=== PATIENT | male | born 1950 | race Caucasian/White ===

== ENCOUNTER 2016-09-26 09:26 | Outpatient (CLI) | payer OTHER ==
--- NOTE | 2016-09-26 12:42 | Ultrasound Report ---
AORTA SCREEN: 09/26/2016 CLINICAL INDICATION: Hypertension. TECHNIQUE: Real-time sonographic vascular imaging was performed by the direct selling counselor through the aorta utilizing both color-flow and Doppler spectral analysis. Multiple small business representative static images were s aved for review. FINDINGS: The abdominal aorta is normal in caliber, measuring 2.7 cm proximally, 2.6 cm in the mid p ortion, and 2.2 cm distally. The iliacs are normal in caliber. No free fluid is present. IMPRESSION: NO EVIDENCE OF ABDOMINAL AORTIC ANEURYSM. JOB #: [id number] EXT JOB #:[id number]
== END 2016-09-26 09:27 | disposition home or self-care (01) ==
LOC: DI 09:26
PROVIDERS: ATTEND Internal Medicine
DX: Z13.6 Encounter for screening for cardiovascular disorders (principal); I10 Essential (primary) hypertension
CPT/HCPCS: 76706

== ENCOUNTER 2017-07-19 17:19 | Observation (INO) | payer OTHER ==
--- NOTE | 2017-07-19 17:38 | ED Physician Documentation ---
PD HPI ABD PAIN - Stated complaint Stated Complaint: ABD PX - Chief complaint Chief Complaint: Abd Pain - History obtained from History obtained from: Patient - History of Present Illness Timing - onset: Last night (Cramping upper abd pain since last night, 10/27. Not better p peptobismol. No N/V/D, hard BM this AM. Previous similar sx due to constipation, but that was lower. No hematochezia. Normal Cscope a few years ago. No abd surgeries.) Review of Systems Ten Systems: 10 systems reviewed and negative Constitutional: denies: Fever, Chills Cardiac: reports: Reviewed and negative Respiratory: reports: Reviewed and negative GI: reports: Abdominal Pain. denies: Nausea, Vomiting, Diarrhea, Hematemesis, Bloody / black stool PD PAST MEDICAL HISTORY - Past Medical History Cardiovascular: Hypertension, High cholesterol Endocrine/Autoimmune: Type 2 diabetes GI: GERD Derm: Other - Past Surgical History Past Surgical History: Yes Ortho: Arthroscopic surgery - Present Medications Home Medications: Ambulatory Orders Medication Instructions Recorded Confirmed Lisinopril 20 mg PO DAILY 01/15/15 08/09/15 Omeprazole [Prilosec] 20 mg PO DAILY 01/15/15 08/09/15 Pravastatin Sodium 40 mg PO DAILY 01/15/15 08/09/15 - Allergies Allergies/Adverse Reactions: Allergies Allergy/AdvReac Type Severity Reaction Status Date / Time No Known Drug Allergies Allergy Verified 07/19/17 17:25 - Social History Does the pt smoke?: No Smoking Status: Never smoker Does the pt drink ETOH?: Yes Does the pt have substance abuse?: No - Family History Family history: reports: Non contributory - Immunizations Immunizations are current?: Yes PD ED PE NORMAL - Vitals Vital signs reviewed: Yes - General General: Alert and oriented X 3, No acute distress - HEENT HEENT: PERRL, EOMI - Neck Neck: Supple, no meningeal sign, No bony TTP - Cardiac Cardiac: RRR, No murmur - Respiratory Respiratory: No respiratory distress, Clear bilaterally - Abdomen Abdomen: Soft, Non tender, Other (sl hyperactive bowel tones) - Back Back: No CVA TTP, No spinal TTP - Derm Derm: Normal color, Warm and dry - Extremities Extremities: No edema, No calf tenderness / cord - Neuro Neuro: Alert and oriented X 3, Normal speech - Psych Psych: Normal mood, Normal affect Results - Vitals Vitals: Vital Signs - 24 hr 07/19/17 17:23 Temperature 36.5 C Heart Rate 82 Respiratory 16 Rate Blood Pressure 170/94 H O2 Saturation 99 Oxygen O2 Source Room air - EKG (time done) 1801 Rate: Rate (enter#) (74) Rhythm: NSR [place]: Normal Intervals: Normal [place] QRS: Normal Ischemia: Non specific changes. No: ST elevation c/w ischemia Computer interpretation: Agree with computer - Labs Labs: Laboratory Tests 07/19/17 07/19/17 07/19/17 17:55 17:55 17:55 WBC 12.8 H RBC 4.89 Hgb 15.3 Hct 44.5 MCV 91.1 MCH 31.4 H MCHC 34.5 RDW 12.3 Plt Count 190 MPV 7.0 L Neut # 10.9 H Lymph # 0.8 L [place] # 1.0 Eos # 0.0 Baso # 0.0 Absolute Nucleated RBC 0.01 Nucleated RBC % 0.1 Sodium 134 L Potassium 3.6 Chloride 97 L Carbon Dioxide 27 Anion Gap 10.0 BUN 14 Creatinine 0.9 Estimated GFR (MDRD) 84 L Glucose 164 H Calcium 9.6 Total Bilirubin 0.9 AST 26 ALT 31 Alkaline Phosphatase 52 Troponin I < 0.04 Total Protein 7.2 Albumin 4.4 Globulin 2.8 Albumin/Globulin Ratio 1.6 Lipase 11 L - Rads (name of study) Ct A/P Radiology: EMP read contemporaneously (Cholelithiasis with gallbladder wall thickening and pericholecystic edema concerning for acute cholecystitis. There is also hepatic steatosis.) PD MEDICAL DECISION MAKING - ED course ED course: 67-year-old gentleman with acute epigastric pain. He is not tender but does have mild leukocytosis and a CT demonstrating cholecystitis. Spoke with the surgeon, Dr. Mota at 7:45 PM and she will place him in observation for likely cholecystectomy after IV antibiotics tomorrow. Departure - Departure Disposition: ED Place in Observation Clinical Impression: Cholecystitis Condition: Stable
[2017-07-19] MEDS ORDERED: LIDOCAINE VISCOUS 2% 15 ML UDC MM STA (17:46)
[2017-07-19] MEDS ORDERED: MAG HYDROX/AL HYDROX/SIMETH 30 ML UDC PO STA (17:46)
[2017-07-19 17:59] LABS: BASOPHILS % (AUTO) 0.3 %; HGB - HEMOGLOBIN 15.3 g/dL (14.0-18.0); LYMPHOCYTES # (AUTO) 0.8 10^3/uL (1.5-3.5); LYMPHOCYTES % (AUTO) 6.5 %; MEAN CORPUSCULAR HEMOGLOBIN 31.4 pg (27.0-31.0); MEAN CORPUSCULAR HGB CONC 34.5 g/dL (32.0-36.0); MEAN CORPUSCULAR VOLUME 91.1 fL (80.0-94.0); MONOCYTES % (AUTO) 7.8 %; NEUTROPHILS # (AUTO) 10.9 10^3/uL (1.5-6.6); NEUTROPHILS % (AUTO) 85.4 %; PLT - PLATELET COUNT 190 10^3/uL (130-450); RED BLOOD COUNT 4.89 10^6/uL (4.70-6.10); RED CELL DISTRIBUTION WIDTH 12.3 % (12.0-15.0); WHITE BLOOD COUNT 12.8 x10^3/uL (4.8-10.8)
[2017-07-19] MEDS ORDERED: ONDANSETRON 4 MG/2 ML VIAL IVP ONE (18:00)
[2017-07-19] MEDS ORDERED: MIDAZOLAM 2 MG/2 ML VIAL IVP ONE (18:00)
[2017-07-19] MEDS ORDERED: DEXAMETHASONE 4 MG/ML VIAL IVP ONE (18:00)
[2017-07-19] MEDS ORDERED: ceFAZolin 1 GM VIAL IV ONE (18:00)
[2017-07-19] MEDS ORDERED: GLYCOPYRROLATE 1 MG/5 ML VIAL IVP ONE (18:00)
[2017-07-19] MEDS ORDERED: PROPOFOL 200 MG/20 ML VIAL IVP ONE (18:00)
[2017-07-19] MEDS ORDERED: NEOSTIGMINE 1 MG/1 ML 10 ML MDV IVP ONE (18:00)
[2017-07-19] MEDS ORDERED: fentaNYL 250 MCG/5 ML VIAL IVP ONE (18:00)
[2017-07-19] MEDS ORDERED: ROCURONIUM 50 MG/5 ML VIAL IVP ONE (18:00)
[2017-07-19] MEDS ORDERED: LIDOCAINE-MPF 2% 5 ML VIAL IM ONE (18:00)
[2017-07-19] MEDS ORDERED: SUCCINYLCHOLINE 200 MG/10 ML VIAL IVP ONE (18:00)
[2017-07-19 18:11] LABS: ALBUMIN 4.4 g/dL (3.2-5.5); ALBUMIN/GLOBULIN RATIO 1.6 (1.0-2.2); BILIRUBIN,TOTAL 0.9 mg/dL (0.2-1.0); CALCIUM 9.6 mg/dL (8.5-10.3); CREATININE 0.9 mg/dL (0.6-1.2); TOTAL PROTEIN 7.2 g/dL (6.7-8.2)
[2017-07-19] MEDS ORDERED: IOPAMIDOL-300 100 ML VIAL ONE (18:26)
[2017-07-19] MEDS ORDERED: MORPHINE 10 MG/ML VIAL IVP STA (19:14)
[2017-07-19] MEDS ORDERED: IOPAMIDOL-300 100 ML VIAL IVP ONE (19:19)
--- NOTE | 2017-07-19 19:39 | CT Report ---
EXAM: CT ABDOMEN AND PELVIS EXAM DATE: 07/19/2017 07:12 PM. CLINICAL HISTORY: Abdominal pain COMPARISONS: None. TECHNIQUE: Routine helical CT imaging was performed through the abdomen and pelvis. IV contrast: 100M L ISOVUE 300. Enteric contrast: No. Reconstructions: Coronal and sagittal. In accordance with CT protocol optimization, one or more of the following dose reduction techniques w ere utilized for this exam: automated exposure control, adjustment of mA and/or KV based on patient s ize, or use of iterative reconstructive technique. FINDINGS: Lung Bases: Unremarkable. Liver: There is mild hepatic steatosis. Gallbladder/Bile Ducts: There is cholelithiasis. The gallbladder is distended. There is mild perichol ecystic fat stranding. No evidence of significant bile duct dilatation. Spleen: Normal. Pancreas: Normal. Adrenal Glands: Normal. Kidneys: Normal. No masses or hydronephrosis. Peritoneal Cavity/Bowel: No free fluid, free air or adenopathy. No masses or acute inflammatory proce ss. The appendix is well visualized and normal. Pelvic Organs: Normal. The bladder and visualized pelvic organs are within normal limits. Vasculature: No aneurysms or other significant abnormality. Bones: No significant abnormality. Other: None. IMPRESSION: 1. There is cholelithiasis. There is mild gallbladder wall thickening and pericholecystic edema. Find ings are suspicious for acute cholecystitis. 2. There is mild hepatic steatosis. 3. No acute gastrointestinal tract abnormalities are seen. [facility] Referring Provider Line: [phone] SITE ID: [id number]
[2017-07-19] MEDS ORDERED: SODIUM CHLORIDE FLUSH 0.9% 10 ML SYRINGE IVP PRN (19:50)
[2017-07-19] MEDS ORDERED: ONDANSETRON ODT 4 MG TABLET TL PRN (19:50)
[2017-07-19] MEDS: LACTATED RINGERS 1,000 ML IV SCH (21:03)
[2017-07-19] MEDS: AMPICILLIN/SULBACTAM 3 GM in SODIUM CHLORIDE 0.9% MINIBAG 100 ML IV SCH (21:03)
[2017-07-19] MEDS: SODIUM CHLORIDE FLUSH 0.9% 10 ML SYRINGE IVP SCH (21:03)
[2017-07-19] MEDS: HYDROcod/ACETAM 5/325 MG TABLET PO PRN (21:28)
[2017-07-20] MEDS: AMPICILLIN/SULBACTAM 3 GM in SODIUM CHLORIDE 0.9% MINIBAG 100 ML IV SCH ×4 (01:00→20:41)
[2017-07-20] MEDS: HYDROcod/ACETAM 5/325 MG TABLET PO PRN ×3 (01:23→22:37)
[2017-07-20] MEDS: MORPHINE 2 MG/ML SYRINGE IVP PRN (04:48)
[2017-07-20 05:25] LABS: BASOPHILS % (AUTO) 0.2 %; EOSINOPHILS % (AUTO) 0.1 %; HGB - HEMOGLOBIN 14.9 g/dL (14.0-18.0); LYMPHOCYTES % (AUTO) 8.3 %; MEAN CORPUSCULAR HEMOGLOBIN 30.7 pg (27.0-31.0); MEAN CORPUSCULAR HGB CONC 33.3 g/dL (32.0-36.0); MEAN CORPUSCULAR VOLUME 92.2 fL (80.0-94.0); MONOCYTES # (AUTO) 1.5 10^3/uL (0.0-1.0); MONOCYTES % (AUTO) 12.5 %; NEUTROPHILS # (AUTO) 9.8 10^3/uL (1.5-6.6); NEUTROPHILS % (AUTO) 78.9 %; PLT - PLATELET COUNT 170 10^3/uL (130-450); RED BLOOD COUNT 4.87 10^6/uL (4.70-6.10); RED CELL DISTRIBUTION WIDTH 12.1 % (12.0-15.0); WHITE BLOOD COUNT 12.4 x10^3/uL (4.8-10.8)
[2017-07-20 05:43] LABS: ALBUMIN 3.8 g/dL (3.2-5.5); ALBUMIN/GLOBULIN RATIO 1.5 (1.0-2.2); BILIRUBIN,TOTAL 1.6 mg/dL (0.2-1.0); CALCIUM 8.5 mg/dL (8.5-10.3); CREATININE 0.8 mg/dL (0.6-1.2); TOTAL PROTEIN 6.4 g/dL (6.7-8.2)
[2017-07-20] MEDS: PANTOPRAZOLE 40 MG TABLET PO SCH (06:35)
[2017-07-20] MEDS: LACTATED RINGERS 1,000 ML IV SCH ×3 (07:46→22:37)
[2017-07-20] MEDS ORDERED: BUPIVACAINE 0.5%-EPI 1:200000 PF 10 ML VIAL ONE ×3 (07:57→15:07)
[2017-07-20] MEDS: SODIUM CHLORIDE FLUSH 0.9% 10 ML SYRINGE IVP SCH ×2 (08:40→20:39)
[2017-07-20] MEDS: POLYETHYLENE GLYCOL 3350 17 GM PACKET PO SCH (08:40)
[2017-07-20] MEDS: LISINOPRIL 20 MG TABLET PO SCH (08:46)
[2017-07-20] MEDS ORDERED: NON FORMULARY MED (Omeprazole [Prilosec] 20 MG) PO SCH (09:00)
--- NOTE | 2017-07-20 14:51 | HISTORY & PHYSICAL EXAMINATION ---
Chief Complaint - Chief Complaint Chief Complaint: abdominal pain Abdominal Pain HPI - History of Present Illness HPI Comment/Other: This is a 67-year-old gentleman who presented to the emergency department yesterday evening with complaints of epigastric abdominal pain. He states that Thursday late in the night he woke up with abdominal pain. This pain progressed throughout most of the day on Thursday and he eventually came to the emergency department. It was initially located in the epigastric area and now is more localized to the right upper quadrant. He denies any prior similar episodes. Upon evaluation in the emergency department white blood cell count and LFTs were performed. He was noted to have a slight leukocytosis of [address] scan of the abdomen was performed which demonstrated cholelithiasis with signs of cholecystitis. Of note his biliary tree did not demonstrate any ductal dilatation. He was subsequently admitted to the surgical service.The patient is currently resting in bed comfortably and states that his pain is markedly improved but he does continue to have a dull pain located in the right upper quadrant. He denies any associated nausea or vomiting.This morning his total bilirubin has increased slightly to 1.6. PMH/PSH - Past Medical History Cardiovascular: positive: Hypertension, High cholesterol Respiratory: positive: None Neuro: positive: None Endocrine/Autoimmune: positive: Type 2 diabetes GI: positive: None : positive: None HEENT: positive: None Psych: positive: None Musculoskeletal: positive: None Derm: positive: Rosacea MRSA Hx?: No - Past Surgical History General: positive: Other Ortho: positive: Arthroscopic surgery Social & Family Hx - Living Situation Living Arrangement: At home - Social History Does the pt smoke?: No Smoking Status: Never smoker Does the pt drink ETOH?: Yes Does the pt have substance abuse?: No Additional Social History: The patient states that he drinks 2-3 glasses of wine daily. Meds/Allgy - Home Medications Home Medications: Ambulatory Orders Medication Instructions Recorded Confirmed Lisinopril 20 mg PO DAILY 01/15/15 07/19/17 Pravastatin Sodium 40 mg PO DAILY 01/15/15 07/19/17 Cholecalciferol (Vitamin D3) 1,000 unit PO DAILY 07/19/17 07/19/17 [Vitamin D3] metFORMIN [Glucophage] 250 mg PO DAILY 07/19/17 07/20/17 - Allergies Allergies/Adverse Reactions: Allergies Allergy/AdvReac Type Severity Reaction Status Date / Time No Known Drug Allergies Allergy Verified 07/19/17 17:25 Exam - Vital Signs Reviewed Vital Signs: Yes Vital Signs: Vital Signs x48h Temp Pulse Resp BP Pulse Ox 07/20/17 11:27 36.9 C 77 16 137/67 H 94 07/20/17 07:48 36.7 C 75 16 126/71 94 - Physical Exam General Appearance: positive: No acute distress Respiratory: positive: No respiratory distress, Breath sounds nml Cardiovascular: positive: Regular rate & rhythm Abdomen: positive: No distention, Other (Tender to palpation in the right upper quadrant with positive guarding but no rebound tenderness) Extremities: positive: No pedal edema Neurologic/Psychiatric: positive: Oriented x3 Results - Lab Results Fish Bones: 07/20/17 04:40 07/20/17 04:40 Other Lab Results: Lab Results x24hrs 07/20/17 07/20/17 Range/Units 04:40 04:40 WBC 12.4 H (4.8-10.8) x10^3/uL RBC 4.87 (4.70-6.10) 10^6/uL Hgb 14.9 (14.0-18.0) g/dL Hct 44.8 (42.0-52.0) % MCV 92.2 (80.0-94.0) fL MCH 30.7 (27.0-31.0) pg MCHC 33.3 (32.0-36.0) g/dL RDW 12.1 (12.0-15.0) % Plt Count 170 (130-450) 10^3/uL MPV 7.0 L (7.4-11.4) fL Neut # 9.8 H (1.5-6.6) 10^3/uL Lymph # 1.0 L (1.5-3.5) 10^3/uL [place] # 1.5 H (0.0-1.0) 10^3/uL Eos # 0.0 (0.0-0.7) 10^3/uL Baso # 0.0 (0.0-0.1) 10^3/uL Absolute Nucleated RBC 0.00 x10^3/uL Nucleated RBC % 0.0 /100WBC Sodium 135 (135-145) mmol/L Potassium 3.5 (3.5-5.0) mmol/L Chloride 103 (101-111) mmol/L Carbon Dioxide 27 (21-32) mmol/L Anion Gap 5.0 L (6-13) BUN 12 (6-20) mg/dL Creatinine 0.8 (0.6-1.2) mg/dL Estimated GFR (MDRD) 97 (>89) Glucose 161 H (70-100) mg/dL Calcium 8.5 (8.5-10.3) mg/dL Total Bilirubin 1.6 H (0.2-1.0) mg/dL AST 22 (10-42) IU/L ALT 26 (10-60) IU/L Alkaline Phosphatase 50 (42-121) IU/L Total Protein 6.4 L (6.7-8.2) g/dL Albumin 3.8 (3.2-5.5) g/dL Globulin 2.6 (2.1-4.2) g/dL Albumin/Globulin Ratio 1.5 (1.0-2.2) Impression/Plan - Problem List Problem List: Acute cholecystitis The patient will be taken to the operating room for laparoscopic cholecystectomy , possible intraoperative cholangiogram. The procedure was explained to the patient in detail including potential risks involved including but not limited to bleeding, infection and damage to intra-abdominal structures specifically including the common bile duct. He and his understand all of the above and agree with to proceed with the procedure. In the interim he will remain n.p.o. on IV antibiotics.
--- NOTE | 2017-07-20 17:36 | OPERATIVE REPORT ---
Operative Report - General Admit Date: 07/19/17 Pre-Op Diagnosis: Acute Cholecystitis Procedure Performed: Laparoscopic cholecystectomy, TAP block, Umbilical hernia repair - Procedure Note Primary Surgeon: Svetlana Anesthesia Technique: General ET tube - Other Other Information/Narrative: Findings: After obtaining informed consent the patient was brought into the operating room and positioned on the operating table in the supine position taking noted pressure points. The patient was intubated by anesthesia. Perioperative antibiotics were administered. The patient was then prepped and draped in the usual sterile fashion and a timeout was taken according to protocol. An infraumbilical 1 cm incision was created and deepened down to the umbilical stalk. The stalk was grasped and elevated and the veres needle inserted. The abdominal cavity was insufflated. A 5 mm incision was created in the patient's epigastric region to the right of the midline. Using a 5 mm Optiview trocar the abdominal cavity was entered. The Veress needle was removed and exchanged for a 12 mm port. 2 additional 5 mm ports were then placed along the patient's right lateral abdominal wall. The gallbladder was noted to be inflamed and distended. I inserted a drainage needle and 80 cc of clear fluid was drained. The gallbladder was then able to be grasped and retracted over the dome of the liver. The gallbladder was noted to be adherent to the underlying omentum and duodenum. These structures were carefully dissected off the gallbladder with blunt dissection. The fundus of the gallbladder very inflammed and I was unable to grasp it. I used my grasper to gently retract the base of the gallbladder medially exposing the lateral attachments and these were carefully taken down working my way laterally to medially. An enlarged lymph node was encountered and this was swept inferiorly. I continued opening the inflamed peritoneum medially to the medial attachments. Using the suction device the fatty inflamed tissue was swept down slowly, exposing the cystic duct. The cystic duct was circumferentially dissected free from surrounding fatty tissue. The cystic artery was similarly dissected out. The base of the gallbladder was dissected off of the liver bed and the critical view was obtained. The cystic duct was clipped with 2 clips placed proximally 1 distally and divided. The cystic artery was divided in a similar manner. The gallbladder was then removed from the gallbladder fossa with electrocautery. There was no spillage of stones during the process of gallbladder removal, but a small amount of bile was spilled. There was also some bleeding from the gallbladder fossa and this was controlled with electrocautery. The gallbladder was then placed in a specimen bag. The fascial incision was extended to approximately 2.5 cm to accommodate the very enlarged gallbladder. The gallbladder fossa was again inspected and copiously irrigated. Hemostasis was achieved and all bilious and bloody fluid evacuated. 40 cc of marcaine was then injected at the costal margin intraperitoneally performing a TAP block. An umbilical hernia was noted upon closure of the umbilical incision. This was dissected off the umbilical skin and reduced. The umbilical incision was then closed using a running 0-vicryl suture. The 5 mm camera was reinserted and the abdominal cavity re-insuflated and the umbilical incision inspected. It was noted to be completely closed and no underlying structures were involved in the closure . The abdominal cavity was then allowed to desufflate and all trochars were removed. An additional 20 cc of local was injected into the skin incisions. The umbilical skin was tacked to the abdominal fascia. The umbilical incision was closed with interrupted 3-0 nylon. The skin incisions were closed with 4-0 Monocryl. telfa and tegaderm was applied. The patient was subsequently extubated and taken to the recovery room in stable condition. Estimated blood loss: 50 Complications: None Specimen: Gallbladder
[2017-07-20] MEDS ORDERED: LACTATED RINGERS 300 ML IV ONE (18:23)
[2017-07-20] MEDS ORDERED: LACTATED RINGERS 1,000 ML IV ONE ×2 (18:24→20:17)
[2017-07-20] MEDS ORDERED: ACETAMINOPHEN 1,000 MG/100 ML 100 ML IV ONE (18:43)
[2017-07-20] MEDS: metFORMIN 500 MG TABLET PO SCH (20:44)
[2017-07-20] MEDS: INSULIN ASPART 300 UNIT/3 ML PEN SUBQ SCH (20:53)
[2017-07-21] MEDS: SODIUM CHLORIDE FLUSH 0.9% 10 ML SYRINGE IVP SCH ×2 (01:52→08:22)
[2017-07-21] MEDS: AMPICILLIN/SULBACTAM 3 GM in SODIUM CHLORIDE 0.9% MINIBAG 100 ML IV SCH ×2 (02:36→08:14)
[2017-07-21] MEDS: HYDROcod/ACETAM 5/325 MG TABLET PO PRN ×2 (02:47→06:58)
[2017-07-21] MEDS: metFORMIN 500 MG TABLET PO SCH (04:58)
[2017-07-21 05:36] VITALS: BP 108/64
[2017-07-21] MEDS: MORPHINE 2 MG/ML SYRINGE IVP PRN (05:43)
[2017-07-21 05:50] LABS: ALBUMIN 3.3 g/dL (3.2-5.5); ALBUMIN/GLOBULIN RATIO 1.1 (1.0-2.2); BILIRUBIN,TOTAL 1.2 mg/dL (0.2-1.0); CALCIUM 8.2 mg/dL (8.5-10.3); CREATININE 0.9 mg/dL (0.6-1.2); TOTAL PROTEIN 6.3 g/dL (6.7-8.2)
[2017-07-21] MEDS: PANTOPRAZOLE 40 MG TABLET PO SCH (06:56)
[2017-07-21] MEDS: LACTATED RINGERS 1,000 ML IV SCH (06:57)
[2017-07-21] MEDS: INSULIN ASPART 300 UNIT/3 ML PEN SUBQ SCH (08:08)
[2017-07-21] MEDS: LISINOPRIL 20 MG TABLET PO SCH (08:09)
[2017-07-21] MEDS: POLYETHYLENE GLYCOL 3350 17 GM PACKET PO SCH (08:09)
--- NOTE | 2017-07-21 09:15 | Discharge Plan ---
Discharge Plan Disposition: 01 Home, Self Care Condition: Stable Diet: Diabetic Activity Restrictions: nothing strenuous Shower Restrictions: Yes (no tub bathing 1 week) Driving Restrictions: Yes (not while on narcotics) Weight Bearing: Full Weight Additional Instructions or Follow Up instructions: handout provided No Smoking: If you smoke, Please STOP! Call for help. Follow-up with: Ruben Marks MD [Primary Care Provider] - MARIEL CHI MD [Provider Admit Priv/Credential] - 1 Week (for suture removal)
--- NOTE | 2017-07-21 10:02 | DISCHARGE SUMMARY ---
Discharge Summary Admit Date: 07/19/17 Discharge Date: 07/21/17 Discharging Provider: Svetlana Condition at Discharge: Stable Discharge Disposition: 01 Home, Self Care - DIAGNOSES Admission Diagnoses: Abdominal Pain Discharge Diagnoses with Status of Each Condition: Acute cholecystitis - HOSPITAL COURSE Hospital Course: This is a 67-year-old gentleman who was admitted to the hospital with abdominal pain. He underwent lab work and CT scan of the abdomen. His lab work and demonstrated a mild leukocytosis and his CT scan demonstrated inflammation of the gallbladder. He was admitted to the surgical service and kept n.p.o. on IV antibiotics. The following day he underwent a laparoscopic cholecystectomy. His gallbladder was noted to be quite inflamed and edematous. He was kept overnight for observation. The following morning he was tolerating diet and ambulating without assistance. He remained afebrile after surgery. He was stable for discharge home on hospital day #1.The patient was provided a prescription for Percocet for pain control upon discharge. He is also divided with instructions for after surgery care. He was instructed to follow-up in the surgical clinic in 1 week for suture removal and wound check. - ALLERGIES Allergies/Adverse Reactions: Allergies Allergy/AdvReac Type Severity Reaction Status Date / Time No Known Drug Allergies Allergy Verified 07/19/17 17:25 - MEDICATIONS Home Medications: Ambulatory Orders Medication Instructions Recorded Confirmed Lisinopril 20 mg PO DAILY 01/15/15 07/19/17 Pravastatin Sodium 40 mg PO DAILY 01/15/15 07/19/17 Cholecalciferol (Vitamin D3) 1,000 unit PO DAILY 07/19/17 07/19/17 [Vitamin D3] metFORMIN [Glucophage] 250 mg PO DAILY 07/19/17 07/20/17 - PHYSICAL EXAM AT DISCHARGE General Appearance: positive: No acute distress Respiratory: positive: No respiratory distress Cardiovascular: positive: Regular rate & rhythm Abdomen: positive: Non-tender, Other (dressings clean and dry) Extremities: positive: No pedal edema Neurologic/Psychiatric: positive: Oriented x3 - LABS Result Diagrams: 07/20/17 04:40 07/21/17 05:20 - TIME SPENT Time Spent in Discharge (Minutes): 20
[2017-07-21] MEDS ORDERED: metFORMIN 500 MG TABLET PO SCH (17:00)
== END 2017-07-21 10:00 | disposition home or self-care (01) ==
LOC: ED 17:19 → OBS 19:50
PROVIDERS: ADMIT Surgery; ATTEND Surgery
PROC: 0FT44ZZ Resection of Gallbladder, Percutaneous Endoscopic Approach (ICD-10-PCS; principal; 2017-07-20 14:30)
DX: K80.00 Calculus of gallbladder with acute cholecystitis without obstruction (principal); I10 Essential (primary) hypertension; E78.00 Pure hypercholesterolemia, unspecified; E11.9 Type 2 diabetes mellitus without complications; K21.9 Gastro-esophageal reflux disease without esophagitis; Z79.899 Other long term (current) drug therapy
CPT/HCPCS: 36415; 47562; 74177; 80053; 83690; 84484; 85025; 93005; 96361; 96365; 96366; 96375; 96376; 99283; 99285; A9270; G0378; J0131; J0330; J2270; J3010; J7120; Q9967; 88304; 99284

== ENCOUNTER 2018-01-12 15:38 | Outpatient (CLI) | payer OTHER ==
--- NOTE | 2018-01-13 08:59 | XRAY Report ---
Reason: PAIN IN UNSPECIFIED JOINT Procedure Date: 01/12/2018 Accession Number: [id number] / [id number] Procedure: XR - Cervical Spine Complete CPT Code: FULL RESULT: EXAM: CERVICAL SPINE RADIOGRAPHY EXAM DATE: 01/12/2018 04:11 PM. CLINICAL HISTORY: Fall, pain. COMPARISONS: None. TECHNIQUE: 5 views, including obliques views. FINDINGS: Alignment: Normal. No spondylolisthesis or scoliosis. Bones: The cervical vertebral bodies and posterior elements are well-visualized from the skull base through C7-T1. No fractures or bone lesions. Disks: Minimal disk space narrowing at all levels except C2-C3, most marked at C6-C7, with mild marginal lipping. Facets: Mild degenerative changes. Neural Foramina: Narrowing on the right at C3-C4 and C4-C5. Narrowing on the left at C3-C4. Soft Tissues: Normal. No prevertebral soft tissue swelling. The visualized lung apices are clear. IMPRESSION: Mild degenerative changes. No acute disease. [facility]
--- NOTE | 2018-01-13 09:03 | XRAY Report ---
Reason: PAIN IN UNSPECIFIED JOINT Procedure Date: 01/12/2018 Accession Number: [id number] / [id number] Procedure: XR - Thoracic Spine 2 View CPT Code: FULL RESULT: EXAM: THORACIC SPINE RADIOGRAPHY EXAM DATE: 01/12/2018 04:11 PM. CLINICAL HISTORY: Fall, pain. COMPARISON: Chest dated 08/17/2014. TECHNIQUE: 2 views. FINDINGS: Alignment: Mild upper thoracic scoliosis. No listhesis. Bones: No fractures or bone lesions. Disks: Normal. Disk heights are maintained. Soft Tissues: Normal. The visualized lungs and cardiomediastinal silhouette are normal. IMPRESSION: Mild scoliosis, increased since previous study. Otherwise negative. [facility]
--- NOTE | 2018-01-13 09:24 | XRAY Report ---
Reason: PAIN IN UNSPECIFIED JOINT Procedure Date: 01/12/2018 Accession Number: [id number] / [id number] Procedure: XR - Lumbar Spine 2 View CPT Code: FULL RESULT: EXAM: LUMBOSACRAL SPINE RADIOGRAPHY EXAM DATE: 01/12/2018 04:11 PM. CLINICAL HISTORY: Fall onto a tree trunk. COMPARISONS: None. TECHNIQUE: 3 views. FINDINGS: Alignment: Mild levoconvex lumbar scoliosis which is possibly positional and no listhesis. Bones: Five lxv-pwg-baxkkiy lumbar vertebral bodies are present. No fractures or bone lesions. Disks: All disk heights are overall maintained there are mild degenerative disk disease changes including endplate sclerosis and mild spurring predominantly at L4-L5. Facets: Mild facet arthropathy is predominately at L5-S1 but also to an even lesser degree at L4-L5. Sacroiliac Joints: Unremarkable. Soft Tissues: Mild aortic calcifications are noted. The visualized bowel gas pattern is normal. IMPRESSION: No evidence of traumatic injury to the osseous lumbar spine. [facility]
== END 2018-01-12 15:39 | disposition home or self-care (01) ==
LOC: DI 15:38
PROVIDERS: ATTEND Internal Medicine
DX: M50.821 Other cervical disc disorders at C4-C5 level (principal); M47.9 Spondylosis, unspecified; M41.9 Scoliosis, unspecified; M51.36 Other intervertebral disc degeneration, lumbar region
CPT/HCPCS: 72050; 72070; 72100

== ENCOUNTER 2018-10-05 12:52 | Outpatient (CLI) | payer MEDICARE, OTHER ==
--- NOTE | 2018-10-05 13:42 | Ultrasound Report ---
Reason: ACUTE EMBOLISM AND THOMBOS UNSP DEEP VN UNSP LOWER Procedure Date: 10/05/2018 Accession Number: [id number] / [id number] Procedure: US - Duplex Ext Veins Right CPT Code: FULL RESULT: EXAM: RIGHT LOWER EXTREMITY VENOUS ULTRASOUND EXAM DATE: 10/05/2018 01:31 PM. CLINICAL HISTORY: Right leg swelling. COMPARISON: None. TECHNIQUE: Real-time sonographic vascular imaging was performed by the electronic components assembler through the lower extremity utilizing both color-flow and Doppler spectral analysis. Multiple reimbursement representative static images were saved for review. FINDINGS: Common Femoral Vein (CFV): Normal. CFV-GSV Junction: Normal. Profunda Femoral Vein (PFV): Normal. Femoral Vein (FV) Prox: Normal. Femoral Vein (FV) Mid: Normal. Femoral Vein (FV) Dist: Normal. Popliteal Vein: Normal. Posterior Tibial Veins: Normal. Peroneal Veins: Normal. Contralateral Side CFV: Normal. Other: None. IMPRESSION: No evidence for deep venous thrombosis. [facility]
== END 2018-10-05 12:53 | disposition home or self-care (01) ==
LOC: DI 12:52
PROVIDERS: ATTEND Internal Medicine
DX: R60.0 Localized edema (principal)

== ENCOUNTER 2019-05-10 08:21 | Outpatient (CLI) | payer MEDICARE, OTHER ==
[2019-05-10 12:08] LABS: CREATININE,URINE 130.8 mg/dL; MICROALBUM/CREATININE RATIO,UR 2.3 ug/mg (<30.0); MICROALBUMIN,URINE 0.3 mg/dL (0-300.0)
[2019-05-10 12:10] LABS: ALBUMIN 4.6 g/dL (3.2-5.5); ALBUMIN/GLOBULIN RATIO 1.6 (1.0-2.2); ALKALINE PHOSPHATASE 47 IU/L (42-121); ALT ALANINE AMINOTRANSFERASE 39 IU/L (10-60); AST ASPARTATE AMINOTRANSFERASE 30 IU/L (10-42); BILIRUBIN,TOTAL 1.1 mg/dL (0.2-1.0); BUN - BLOOD UREA NITROGEN 13 mg/dL (6-20); CALCIUM 9.1 mg/dL (8.5-10.3); CARBON DIOXIDE - CO2 27 mmol/L (21-32); CHLORIDE 101 mmol/L (101-111); CHOL/HDL RATIO 4.3 (<5.0); CHOLESTEROL 145 mg/dL; GFR - MDRD 75 (>89); GLUCOSE 110 mg/dL (70-100); HDL CHOLESTEROL 34 mg/dL; LDL CHOLESTEROL,CALCULATED 85 mg/dL; LDL/HDL RATIO 2.5 (<3.6); SODIUM 137 mmol/L (135-145); TOTAL PROTEIN 7.5 g/dL (6.7-8.2); VLDL CHOLESTEROL 26 mg/dL
[2019-05-10 12:23] LABS: HB2 TOTAL 16.6 g/dL; HEMOGLOBIN A1C 0.68 g/dL; HEMOGLOBIN A1C % 5.9 % (4.6-6.2)
== END 2019-05-10 23:59 | disposition home or self-care (01) ==
LOC: LAB.N 08:21
PROVIDERS: ATTEND Internal Medicine
DX: E11.9 Type 2 diabetes mellitus without complications (principal); E66.9 Obesity, unspecified; E78.5 Hyperlipidemia, unspecified; I10 Essential (primary) hypertension; Z79.899 Other long term (current) drug therapy
CPT/HCPCS: 36415; 80053; 80061; 82043; 82570; 83036; 83721; 84443

== ENCOUNTER 2020-03-23 08:01 | Outpatient (CLI) | payer MEDICARE, OTHER ==
--- NOTE | 2020-03-23 11:53 | XRAY Report ---
PROCEDURE: Shoulder 3 View RT INDICATIONS: RT SHOULDER PAIN TECHNIQUE: 3 views of the shoulder were acquired. COMPARISON: None. FINDINGS: Bones: No fractures or dislocations. There is moderate glenohumeral joint degeneration with joint sp paola narrowing, subchondral sclerosis, and osteophytosis. Mild acromioclavicular joint degeneration de monstrated as well as minimal inferior spurring along the lateral acromion. No suspicious bony lesion s. Visualized ribs appear intact. Soft tissues: No suspicious soft tissue calcifications. IMPRESSION: 1. Osteoarthritic changes including moderate degeneration of the glenohumeral joint. Reviewed by: Yves Watkins MD on 03/23/2020 11:52 AM [facility] Approved by: Yves Watkins MD on 03/23/2020 11:52 AM [facility] Station ID: [id number]
== END 2020-03-23 08:02 | disposition home or self-care (01) ==
LOC: DI 08:01
PROVIDERS: ATTEND Internal Medicine
DX: M19.011 Primary osteoarthritis, right shoulder (principal)

== ENCOUNTER 2020-08-09 07:40 | Outpatient (CLI) | payer MEDICARE, OTHER ==
--- NOTE | 2020-08-09 09:51 | Ultrasound Report ---
PROCEDURE: Abdomen Complete INDICATIONS: UMBILICAL HERNIA TECHNIQUE: Real-time scanning was performed of the abdominal and retroperitoneal organs, with image documentatio n. COMPARISON: None. FINDINGS: Liver: Echogenic liver appearance diffusely. No focal hepatic lesion. Liver measures 13.2 cm in ivania th Gallbladder: Surgically absent Biliary ducts: Intrahepatic bile ducts are non-dilated. Extrahepatic bile duct caliber measures 6-7 mm. The distal common bile duct not well seen. Normal is 6-7 mm or less in diameter, or 10 mm or le ss post-cholecystectomy. Pancreas: Visualized portions of the pancreas are sonographically normal. Spleen: Spleen is normal in size and homogeneous in echotexture. Kidneys: Kidneys are normal in size and echotexture. Right kidney measures 10.3 cm long; left kidne y measures 11.5 cm long. No hydronephrosis or nephrolithiasis. No solid masses. Left renal cysts m easuring 1.1 x 0.9 x 0.7 cm in the mid left kidney. 1.2 x 1.1 x 0.7 cm mid left renal cyst. Aorta: Visualized aorta is normal in caliber at less than 3 cm. Iliacs: Proximal common iliac arteries are normal in caliber at less than 2.5 cm. IVC: Intrahepatic inferior vena cava is patent. Miscellaneous: No free abdominal fluid. Periumbilical hernia approximately 3 cm superior to the umb ilicus in the area of pain measuring 0.8 x 0.7 cm. IMPRESSION: Subcentimeter supraumbilical hernia as above. Coarsely echogenic liver suggesting hepatic steatosis/diffuse hepatocellular disease. Please correlat e with LFTs. Left renal cysts Reviewed by: Dante Cobb MD on 08/09/2020 9:50 AM PDT Approved by: Dante Cobb MD on 08/09/2020 9:50 AM PDT Station ID: [id number]
== END 2020-08-09 07:41 | disposition home or self-care (01) ==
LOC: DI 07:40
PROVIDERS: ATTEND Internal Medicine
DX: K42.0 Umbilical hernia with obstruction, without gangrene (principal); N28.1 Cyst of kidney, acquired; R93.2 Abnormal findings on diagnostic imaging of liver and biliary tract

== ENCOUNTER 2021-06-24 07:23 | Day surgery (SDC) | payer MEDICARE, OTHER ==
[~2021-06-24 07:23] MED LIST: BUPIVACAINE 0.5% PF 10 ML VIAL ONE; CEFAZOLIN SODIUM IN 0.9 % NACL 2 GM/50 ML BAG IV ONE; LIDOCAINE 2%-EPI 1:100000 20 ML MDV ONE; ceFAZolin 1 GM VIAL ONE
[2021-06-24] MEDS ORDERED: LACTATED RINGERS 1,000 ML IV ONE ×2 (07:31→10:34)
[2021-06-24] MEDS ORDERED: MIDAZOLAM 2 MG/2 ML VIAL ONE (08:03)
[2021-06-24] MEDS ORDERED: LIDOCAINE-MPF 2% 5 ML VIAL ONE (08:03)
[2021-06-24] MEDS ORDERED: PROPOFOL 200 MG/20 ML VIAL IVP ONE (08:03)
[2021-06-24] MEDS ORDERED: fentaNYL 100 MCG/2 ML VIAL ONE (08:04)
[2021-06-24] MEDS ORDERED: ATROPINE ABBOJECT 1 MG/10 ML SYRINGE IVP PRN (08:24)
[2021-06-24] MEDS ORDERED: MORPHINE 2 MG/ML CARPUJECT IVP PRN (08:24)
[2021-06-24] MEDS ORDERED: NALOXONE 0.4 MG/ML VIAL IVP PRN (08:24)
[2021-06-24] MEDS ORDERED: ePHEDrine 50 MG/ML VIAL IVP PRN (08:24)
[2021-06-24] MEDS ORDERED: METOCLOPRAMIDE 10 MG/2 ML VIAL IVP PRN (08:24)
[2021-06-24] MEDS ORDERED: HYDROmorphone 0.5 MG/0.5 ML SYRINGE IVP PRN (08:24)
[2021-06-24] MEDS ORDERED: ONDANSETRON 4 MG/2 ML VIAL IVP PRN ×2 (08:24→10:28)
[2021-06-24] MEDS ORDERED: fentaNYL 100 MCG/2 ML VIAL IVP PRN (08:24)
--- NOTE | 2021-06-24 08:25 | ANESTHESIA ---
Pre-Anesthesia VS, & Labs - Diagnosis ventral hernia - Procedure ventral hernia repair Vital Signs: Temp Pulse Resp BP Pulse Ox 36.2 C L 98 18 159/90 H 98 06/24/21 07:31 06/24/21 07:31 06/24/21 07:31 06/24/21 07:31 06/24/21 07:31 Height: 5 ft 8 in Weight (kg): 105 kg Body Mass Index: 35.2 BMI Classification: Obese - NPO >8 hours - Lab Results Current Lab Results: Laboratory Tests 06/24/21 07:52: POC Whole Bld Glucose 150 H Lab results reviewed: Yes Home Medications and Allergies Home Medications: Ambulatory Orders Liraglutide [Victoza 2-Yury] 1.8 mg SQ DAILY 06/13/21 Lisinopril 20 mg PO DAILY 01/15/15 Pravastatin Sodium 40 mg PO DAILY 01/15/15 Liraglutide [Victoza 2-Yury] 1.8 mg SQ DAILY 06/13/21 Allergies/Adverse Reactions: Allergies Allergy/AdvReac Type Severity Reaction Status Date / Time No Known Drug Allergies Allergy Verified 06/24/21 07:46 Anes History & Medical History - Anesthetic History Anesthesia Complications: reports: No previous complications Family history of Anesthesia Complications: Denies Family history of Malignant Hyperthermia: Denies - Medical History Cardiovascular: reports: Hypertension, High cholesterol Pulmonary: reports: None Gastrointestinal: reports: None Urinary: reports: None Musculoskeletal: reports: None Endocrine/Autoimmune: reports: Type 2 diabetes Blood Disorders: reports: None Skin: reports: Rosacea Smoking Status: Never smoker Psychosocial: reports: No issues indicated History of Cancer?: No - Surgical History General: reports: Cholecystectomy, Other Eyes Ears Nose Throat (EENT): reports: Cataracts, Tonsil/Adenoidectomy Orthopedic: reports: Arthroscopic surgery Exam General: Alert, Oriented x3, Cooperative Dental: WNL Mouth Openin Fingerbreadth Neck Mobility: Normal Mallampati classification: II Thyromental Distance: 4-6 cm Respiratory: Lungs clear, Normal breath sounds, No respiratory distress Cardiovascular: Regular rate Mental/Cognitive Status: Alert/Oriented X3, Normal for patient Cognitive Status: Within normal limits Plan Anesthesia Type: General Consent for Procedure(s) Verified and Reviewed: Yes Code Status: Attempt Resuscitation ASA classification: 2-Mild systemic disease Is this case an emergency?: No
[2021-06-24] MEDS ORDERED: LACTATED RINGERS 1,000 ML IV SCH (09:00)
[2021-06-24] MEDS ORDERED: ONDANSETRON 4 MG/2 ML VIAL ONE (10:02)
[2021-06-24] MEDS ORDERED: HYDROmorphone 1 MG/ML CARPUJECT ONE (10:03)
[2021-06-24] MEDS ORDERED: LIDOCAINE MPF 2%-EPI 1:200000 20 ML VIAL SUBQ ONE (10:13)
[2021-06-24] MEDS ORDERED: BUPIVACAINE 0.5% PF 10 ML VIAL IM ONE (10:13)
--- NOTE | 2021-06-24 10:21 | OPERATIVE REPORT ---
Operative Report - General Procedure Date: 06/24/21 Planned Procedure: Ventral hernia repair Pre-Op Diagnosis: Supraumbilical ventral hernia Procedure Performed: Complex incisional hernia repair Post Op Diagnosis: Incisional hernia beginning at the umbilicus with multiple fascial defects - Procedure Note Primary Surgeon: Carmen Anesthesia Provider: JERRY Vivar Anesthesia Technique: General LMA, Regional block Pathology: None Estimated Blood Loss (mL): 10 Findings: 3 cm defect at the umbilicus at the site of the prior cholecystectomy incision. 2 cm defect 2 cm superior to the umbilicus Complications: None apparent - Other Other Information/Narrative: After obtaining informed consent, the patient is brought to the operating room and placed in the supine position on the operating table. Following successful induction of general endotracheal anesthesia, appropriate padding of all bony prominences, and placement of appropriate monitors, the abdomen was prepped and draped in the standard surgical fashion. A timeout was held per scope protocol. All elements of the surgical safety checklist were followed before, during, and after the procedure. Following infiltration with local anesthetic to create a field block, an incision was created directly over the palpable and visible defect. This was carried through the skin and subcutaneous tissue. The umbilical tissue. We first identified a 2 cm transverse defect approximately 2 to 3 cm superior to the umbilicus.The fascial edges of this defect were defined and in doing so we discovered a second defect at the umbilicus. This was approximately 2 cm inferior to this originally identified defect. The defect at the umbilicus was approximately 3 cm and also in transverse orientation.The fascial edges of the defect at the umbilicus, at the site of prior surgery, were carefully defined. The hernia sac itself was approximately 4 cm. The hernia sac was carefully dissected free from the overlying skin and underlying fascial tissue as well as the surrounding areolar tissue. The contents of the sac were eased back into the abdominal cavity without opening the peritoneum. The distance between the 2 defects was measured and found to be 3 cm in total. An 8 cm piece of Ventralex ST hernia mesh was placed into the defect. The mesh was dipped in Ancef solution and into the defect. It was straightened and flattened in the preperitoneal space. Placement was checked and adjusted. Once we were satisfied it was ideal, the tails were trimmed and sewn to the fascia anteriorly. Great care was taken to be sure that this mesh also covered the more superior defect and this was verified by direct visualization. The more superior defect was then closed directly with 0 PDS suture to provide a second layer protection. The wound was checked for hemostasis and irrigated with Ancef containing solution The umbilicus was reconstructed with interrupted Vicryl suture. The incision was closed in layers with Vicryl and Monocryl suture and Dermabond was applied to the skin. All sponge, needle, and instrument counts were correct at the conclusion of the case. The patient was allowed awaken from anesthesia without difficulty and taken to the postanesthesia care unit in good condition.
[2021-06-24] MEDS ORDERED: oxyCODONE 5 MG TABLET PO PRN (10:28)
[2021-06-24] MEDS ORDERED: IBUPROFEN 600 MG TABLET PO PRN (10:28)
[2021-06-24] MEDS ORDERED: ACETAMINOPHEN 325 MG TABLET PO PRN (10:28)
[2021-06-24 13:16] VITALS: BP 138/88
--- NOTE | 2021-06-24 13:31 | ANESTHESIA POST OP EVALUATION ---
Anesthesia Post Eval - Post Anesthesia Eval Vitals: Last Vital Signs Temp 36.8 C 06/24/21 13:00 Pulse 99 06/24/21 13:00 Resp 14 06/24/21 13:00 BP 138/88 H 06/24/21 13:00 Pulse Ox 100 06/24/21 13:00 CV Function Including HR & BP: Stable Pain Control: Satisfactory Nausea & Vomiting: Negative Mental Status: Baseline Respiratory Status: Airway Patent Hydration Status: Satisfactory Anesthesia Complications: None
== END 2021-06-24 07:24 | disposition home or self-care (01) ==
LOC: SDS 07:23
PROVIDERS: ATTEND Surgery
DX: K43.2 Incisional hernia without obstruction or gangrene (principal); E66.9 Obesity, unspecified; Z68.35 Body mass index [BMI] 35.0-35.9, adult; E11.9 Type 2 diabetes mellitus without complications; I10 Essential (primary) hypertension
CPT/HCPCS: 49560; 49568; C1781; J0690; J1170; J7120

== ENCOUNTER 2021-10-22 15:44 | Outpatient (CLI) | payer MEDICARE, OTHER ==
--- NOTE | 2021-10-22 16:36 | SLEEP CARE CONSULTATION ---
Information from patient questionnaire entered by Jake Mccoy MA. I have reviewed and concur with the information entered by Jake Mccoy MA. This document represents the service I personally performed and the decisions made by , Lisset Alicia ARNP. History of Present Illness Service Date and Time: 10/22/2021 1544 Reason for Visit: New patient (ONSET 09/2020, NO PRIORS,) Chief Complaint: reports: Excessive daytime sleepiness, Observed pauses in breat [place] Date of Onset: 1 YEAR Usual bedtime: 10 PM Time it takes to fall asleep: 5 MINUTES Snores at night: No (per his ) Observed to quit breathing while asleep: Yes Sleeps alone due to snoring: No Number of times waking at night: 1 Reasons for waking at night: reports: Bathroom. denies: Choking, Snoring, Gasping for air Toss, Turn, or Twitch while sleeping: Yes Recalls having dreams: Yes Usually gets out of bed at: [id number] Feels refreshed in the morning: Yes Morning headache: No Sleepy or fatigued during the day: No Ever fallen asleep while driving: No Takes day naps: Yes (usually 5 mins a few times a month) Dreams during day naps: No Prior sleep studies: No Additional HPI information: I had the pleasure of seeing MARY POZO today regarding the possibility of him having a sleep disorder. His current complaint is of excessive daytime sleepiness. He states he has diabetes and he is trying to lose weight. He is not losing weight with a 1000 to 1200 calories a day limit. He is staying active and exercising regularly. He will fall asleep a few times a month when sitting quietly in his chair in the afternoon. He usually only doses off for about 5 minutes or so. - Parasomnia Symptoms Ever been unable to move upon waking from sleep: No Walks in sleep: No Talks in sleep: No Ever acted out dreams in sleep: No Ever felt weak in the knees when startled or emotional: No Bothered by creepy, crawly, restless sensations in legs: No Problems with memory or concentration: No Subjective Initial [place] Sleepiness Scale score: 1 (10/22/2021) Past Medical History Past Medical History: reports: Hypertension, Diabetes, Other (high cholesterol; tonsillectomy, gallbladder surgery 2-3 yrs ago; hernia repair 05/2021) Social History The patient's occupation is a RE. Patient is and lives in [place]. Have you smoked in the past 12 months: No Alcohol use: Yes Alcohol amount and frequency: 1-2 X WEEKLY Caffeine use: No Family History Family history of sleep disordered breathing: No Allergies and Home Medications Known drug allergies: No Drug allergies reviewed: Yes (NKDA) Home medication list reviewed: Yes Allergy and home medication list: Allergies No Known Drug Allergies Allergy (Verified 06/24/21 07:46) Medications: Victoza 1.8 mg, once per day HCTZ 25 mg, once per day Lisinopril 5 mg, once per day Cholestyramine powder 4 mg, once per day Review of Systems Weight gain over past 5 years: 10 Weight loss over past 5 years: 7 Cardiovascular: reports: high blood pressure Gastrointestinal: denies: heartburn Neurological: denies: headaches, head trauma Psychiatric: denies: anxiety, depression Ear/Nose/Throat: reports: tonsillectomy. denies: injury to nose, wisdom teeth removed Endocrine: denies: thyroid disease Musculoskeletal: reports: other (arthritis in fingers) Physical Exam Vital signs obtained and entered by: SHARON GARCIA Blood Pressure: 122/81 (RESP 18, PULSE 74, LEFT) Cuff size: wrist Heart Rate: 74 O2 Saturation: 97 (PAPER MASK) Height: 5 ft 8 in Weight: 223 lb (CLOTHES) Body Mass Index: 33.9 BMI Classification: Obese Neck circumference: 16 (INCHES) Nostrils: patent to airflow (slightly limited on left side) Mouth and throat: normal Soft palate: long Hard palate: normal Uvula: long Uvula visualization: 100% Mallampati Class I Tongue: enlarged in size with teeth burnett on lateral edges Tonsils: absent bilaterally Neck: normal w/o lymphadenopathy or thyromegaly Heart: regular rate and rhythm Lungs: clear bilaterally Impression and Plan 1. Suspected Obstructive Sleep Apnea-Hypopnea Syndrome, as suggested by a history of observed cessation of breath while asleep and excessive daytime sleepiness. Narrow oropharynx and obesity are common predisposing factors for obstructive sleep apnea-hypopnea syndrome. I recommend proceeding to polysomnography to confirm the diagnosis and to assess severity. If the patient has significant sleep disordered breathing, a manual CPAP titration study will also be performed to find the optimal treatment pressure. I informed the patient of what the sleep studies involve and after some discussion, obtained agreement to proceed. The pathophysiology of obstructive sleep apnea-hypopnea syndrome was discussed with the patient and health risks of cardiovascular and cerebrovascular disease if not treated. Risks of drowsy driving discussed in detail and patient advised to avoid long distance driving and to clod puller at the first sign of drowsiness. Patient agreed to plan. * Schedule polysomnography * Avoid long distance driving or driving when feeling sleepy. * Avoid alcohol, sedative and muscle relaxant around bedtime. * Attempt to lose weight. * Review instructions provided by trained office staff on how to prepare for the sleep study. * Return for follow-up after sleep study completed. Counseling Topics: Weight loss health impact Visit Type: In Office Time Spent with Patient (minutes): 32 Provider Statement: I spent 100% of the Face to Face Visit with the patient with greater than 50% spent counseling the patient and coordination of care.
[2021-10-22 16:39] VITALS: BP 122/81
== END 2021-10-22 15:45 | disposition home or self-care (01) ==
LOC: SC 15:44
PROVIDERS: ATTEND Nurse Practitioner Family
DX: G47.10 Hypersomnia, unspecified (principal); R06.81 Apnea, not elsewhere classified; E11.9 Type 2 diabetes mellitus without complications; I10 Essential (primary) hypertension; E66.9 Obesity, unspecified; Z68.33 Body mass index [BMI] 33.0-33.9, adult
CPT/HCPCS: 99203; G0463; 99212

== ENCOUNTER 2021-11-12 09:00 | Outpatient (CLI) | payer MEDICARE, OTHER ==
[2021-11-12 09:50] VITALS: BP 121/74
--- NOTE | 2021-11-12 09:50 | SLEEP CARE CONSULTATION ---
Information from patient questionnaire entered by Jake Mccoy MA. I have reviewed and concur with the information entered by Jake Mccoy MA. This document represents the service I personally performed and the decisions made by , Lisset Alicia ARNP. History of Present Illness Service Date and Time: 11/12/2021 0900 Initial [place] Sleepiness Scale score: 1 (10/22/2021) Current [place] Sleepiness Scale score: 1 (11/12/21) Additional HPI information: MARY POZO returns for follow up and results of the recently performed polysomnography. I explained the pathophysiology behind obstructive sleep apnea. We then spent quite a bit of time discussing different treatment options. For mild obstructive sleep apnea, surgery and oral appliance are alternatives to nasal CPAP therapy but in moderate or severe cases, nasal CPAP is the most effective and reliable treatment. Because apnea is primarily in supine position, then positional management therapy could be effective. Methods discussed such as positioning with pillows to prevent supine sleep. I reviewed the impact of weight changes on sleep apnea and strongly recommended losing weight. Patient counseled not drink alcohol less than 4 hours before bedtime as it can increase snoring and apnea. Patient was cautioned about risks of drowsy driving until sleepiness symptoms resolve. Patient denies drowsy driving. Sleep Study - Results Type of Sleep Study: Polysomnography (F/U POLY, 10/28/2021 [facility], POS,) Prior sleep studies: No Polysomnography/Home Sleep Study results: IMPRESSION: The quality of the study is good. The patient had reduced sleep efficiency due to a prolonged awakening in the middle of the night. The sleep architecture was relatively normal considering the first-night effect. Respiratory monitoring showed mild obstructive sleep apnea-hypopnea (AHI = 7.2) associated with oxyhemoglobin desaturation and mild hypoxia (pj oxygen saturation of 81%). The respiratory events occurred almost exclusively during supine sleep (supine AHI = 21.5; non-supine = 1.64). Snore was light in intensity. There was no significant periodic leg movement of sleep. Cardiac rhythm was normal sinus rhythm without significant arrhythmia. No abnormal behavior (parasomnia) observed during the night. Allergies and Home Medications Known drug allergies: No (NKA) Drug allergies reviewed: Yes Home medication list reviewed: Yes (no changes) Allergy and home medication list: Allergies No Known Drug Allergies Allergy (Verified 06/24/21 07:46) Review of Systems Review of systems same as previous: Yes (no changes) Physical Exam Vital signs obtained and entered by: SHARON GARCIA Blood Pressure: 121/74 (PULSE 71, RESP 18, RIGHT) Cuff size: wrist Heart Rate: 74 O2 Saturation: 96 (N95) Height: 5 ft 8 in Weight: 220 lb Weight change since last visit: LOSE - Body Mass Index: 33.4 BMI Classification: Obese Impression and Plan 1. Obstructive Sleep Apnea-Hypopnea Syndrome, mild, with lowest oxygen saturation of 81%. Obviously this is the cause of the patients symptoms of unrefreshed sleep, and excessive daytime sleepiness. Positive pressure therapy could benefit hypertension and diabetes. Since patients apnea is primarily in supine position, patient has opted to try positional therapy and agreed with plan. He is also advised to lose weight as this will reduce snoring and apnea. Follow up is scheduled for one month to check effectiveness. 2. Obesity, unspecified. Currently patients BMI is 33.4. Obesity increases the risk of apnea and overall health risks especially cardiovascular and diabetes. Thus patient is advised to continue to try to lose weight. Weight loss can be done with reducing portion size, reducing refined foods and balancing content with vegetables, fruit and whole grain foods. In addition, patient encouraged to get regular exercise. * Positional therapy * Continue to try to lose weight. * Avoid alcohol consumption near bedtime. * Avoid supine sleep * Return in one month. I will assess response to therapy and compliance at that time. Counseling Topics: Sleeping position, Weight loss health impact Visit Type: In Office Time Spent with Patient (minutes): 22 Provider Statement: I spent 100% of the Face to Face Visit with the patient with greater than 50% spent counseling the patient and coordination of care.
== END 2021-11-12 09:01 | disposition home or self-care (01) ==
LOC: SC 09:00
PROVIDERS: ATTEND Nurse Practitioner Family
DX: G47.33 Obstructive sleep apnea (adult) (pediatric) (principal); E66.9 Obesity, unspecified; Z68.33 Body mass index [BMI] 33.0-33.9, adult
CPT/HCPCS: 99213; G0463; 99212

== ENCOUNTER 2021-12-24 08:34 | Outpatient (CLI) | payer MEDICARE, OTHER ==
[2021-12-24 08:56] VITALS: BP 138/80
--- NOTE | 2021-12-24 08:56 | SLEEP CARE CONSULTATION ---
Information from patient questionnaire entered by Julissa Mcmillan. I have reviewed and concur with the information entered by Julissa Mcmillan. This document represents the service I personally performed and the decisions made by me, Lisset Alicia ARNP. History of Present Illness Service Date and Time: 12/24/2021 0834 Previous diagnosis: Mild, Obstructive Sleep Apnea-Hypopnea Syndrome AHI: 7.2 Reason for follow up: other (6 WEEK F/U, POSITIONAL THERAPY) Prior sleep studies: No HPI additional information: MARY POZO was diagnosed to have mild, AHI 7.2, obstructive sleep apnea- hypopnea syndrome and returned today for Positional therapy 6 week follow-up. Sleep Study - Results Prior sleep studies: No CPAP Compliance Data Compliance data discussion: He states he is sleeping until 6 AM and gets about 7-8 hours a night. He is able to stay on his sides. He has been able to position his shoulder so it does not get pain. He is waking up feeling more refreshed. He has ended up on his back 2- 3 times in the last 6 weeks. Subjective On therapy, patient: reports: sleeping better, awakening more refreshed, being more awake and alert during the day, more rested overall, other (not falling asleep in the afternoon). denies: drowsiness while driving Initial [place] Sleepiness Scale score: 1 (10/22/2021) Current [place] Sleepiness Scale score: 0 Allergies and Home Medications Drug allergies reviewed: Yes (NKDA) Home medication list reviewed: Yes (no changes) Review of Systems Review of systems same as previous: Yes (no changes) Physical Exam Vital signs obtained and entered by: EMILY, [employer] Blood Pressure: 138/80 (LEFT ARM ) Cuff size: regular Heart Rate: 84 O2 Saturation: 99 Height: 5 ft 8 in Weight: 231 lb Body Mass Index: 35.1 BMI Classification: Obese Impression and Plan 1. Obstructive Sleep Apnea-Hypopnea Syndrome, mild. Using positional therapy, the patient has better sleep quality and is more rested overall. Patient states he is able to stay off of his back and he is sleeping better and longer than he had been before. He is waking up feeling refreshed. He would like to continue with positional therapy. Patient's apnea severity and rationale for treatment to reduce apnea, improve sleep quality and reduce cardiovascular and cerebrovascular events was reviewed. 2. Obesity, unspecified. Patient is trying to lose weight but is not able to lose much. He is working with his PCP on this. Currently patients BMI is 35.1. Obesity increases the risk of apnea and overall health risks especially cardiovascular and diabetes. Thus patient is advised to continue to try to lose weight. Weight loss can be done with reducing portion size, reducing refined foods and balancing content with vegetables, fruit and whole grain foods. In addition, patient encouraged to get regular exercise. -Continue positional therapy -Avoid supine sleep -Continue to try to lose weight -Call this office if any problems -Return for follow up in 6 months, or sooner if concerns arise Counseling Topics: Sleeping position, Weight loss health impact Visit Type: In Office Time Spent with Patient (minutes): 12 Provider Statement: I spent 100% of the Face to Face Visit with the patient with greater than 50% spent counseling the patient and coordination of care.
== END 2021-12-24 08:35 | disposition home or self-care (01) ==
LOC: SC 08:34
PROVIDERS: ATTEND Nurse Practitioner Family
DX: G47.33 Obstructive sleep apnea (adult) (pediatric) (principal); E66.9 Obesity, unspecified; Z68.35 Body mass index [BMI] 35.0-35.9, adult
CPT/HCPCS: 99212; G0463

== ENCOUNTER 2023-05-11 10:35 | Outpatient (CLI) | payer MEDICARE, OTHER ==
--- NOTE | 2023-05-11 11:55 | XRAY Report ---
PROCEDURE: Shoulder 2+V RT INDICATIONS: SHOULDER PAIN TECHNIQUE: 3 views of the shoulder were acquired. COMPARISON: None. FINDINGS: Bones: Surgery narrowing of the glenohumeral joint is seen with marginal osteophytes, subchondral sc lerosis and cyst representing DJD. No acute fracture or subluxation is seen. Soft tissues: The visualized lungs are within normal limits. IMPRESSION: Severe DJD of the right shoulder Reviewed by: Ronen Fitzpatrick MD on 05/11/2023 11:54 AM PST Approved by: Ronen Fitzpatrick MD on 05/11/2023 11:54 AM PST Station ID: [id number]
== END 2023-05-11 10:36 | disposition home or self-care (01) ==
LOC: DI 10:35
PROVIDERS: ATTEND Internal Medicine
DX: M19.011 Primary osteoarthritis, right shoulder (principal)

== ENCOUNTER 2023-07-28 08:41 | Outpatient (CLI) | payer MEDICARE, OTHER | END 2023-07-28 08:42 | disposition home or self-care (01) | LOC: LAB 08:41 | PROVIDERS: ATTEND Emergency Medicine | DX: Z20.1 Contact with and (suspected) exposure to tuberculosis (principal) | CPT/HCPCS: 81599 ==

== ENCOUNTER 2023-10-22 08:11 | Outpatient (CLI) | payer MEDICARE, OTHER | END 2023-10-22 08:12 | disposition home or self-care (01) | LOC: LAB 08:11 | PROVIDERS: ATTEND Emergency Medicine | DX: Z20.1 Contact with and (suspected) exposure to tuberculosis (principal) | CPT/HCPCS: 81599 ==